=== PATIENT | male | born 1945 | race Caucasian/White ===

== ENCOUNTER 2018-04-14 08:21 | Emergency (ER) | payer MEDICARE ==
[2018-04-14 08:38] VITALS: BP 108/69
--- NOTE | 2018-04-14 09:00 | UC ---
Throat Pain/Nasal Juan Ramon HPI - HPI Summary HPI Summary: sinus congstion and PND x 3 days Pt has tried nyquil with mild relief. nasal secretions thick green. Today with nause. no fever, chills. No cp, sob, abd argueta Pt with unknown sick contact Pt's medications reviewed this visit - History of Current Complaint Chief Complaint: UCRespiratory Stated Complaint: COLD SXS Time Seen by Provider: 04/14/18 08:42 Hx Obtained From: Patient Onset/Duration: Gradual Onset Pain Intensity: 6 - Allergies/Home Medications Allergies/Adverse Reactions: Allergies Allergy/AdvReac Type Severity Reaction Status Date / Time lovastatin Allergy Rash Verified 04/14/18 08:31 PMH/Surg Hx/FS Hx/Imm Hx Previously Healthy: Yes - Surgical History Surgical History: Yes Surgery Procedure, Year, and Place: 1948 TONSILLECTOMY AND ADENOIDECTOMY, [place]. 1958 APPENDECTOMY, [facility]. 1958 EXPLORATORY LAP WITH POSSIBLE HERNIA REPAIR AND REMOVAL OF SPONGES, [facility]. 1963 PILIONAL CYST REMOVED, [facility]. 1980 BILATERAL GREAT TOENAILS REMOVED. 1995 MELANOMA REMOVED LEFT ARM, [facility]. 2010 BILATERAL CATARACT EXCISION WITH IOL IMPLANTS, [facility]. 2011 RIGHT SHOULDER SURGERY, [facility]. 2015 [place]G [place]OPSY,[place]. 2016- [facility]OSCOPY-[facility] [place]. VASECTOMY - Family History Known Family History: Positive: Other - non contributory - Social History Occupation: Retired Lives: With Family Alcohol Use: None Substance Use Type: None Smoking Status (MU): Former Smoker Type: Cigarettes Amount Used/How Often: 1-1.5 PPD FOR ABOUT 16+ YEARS Have You Smoked in the Last Year: No When Did the Patient Quit Smoking/Using Tobacco: QUIT 38 YEARS AGO - Immunization History Most Recent Influenza Vaccination: HAS HAD Most Recent Tetanus Shot: UP TO DATE Most Recent Pneumonia Vaccination: HAS HAD Review of Systems Constitutional: Negative ENT: Nasal Discharge, Sinus Congestion All Other Systems Reviewed And Are Negative: Yes Physical Exam - Summary Physical Exam Summary: Vital Signs Reviewed: Yes A+Ox3, no distress Eyes: Conjunctiva Clear, EMA. EOM intact and full ENT: Hearing grossly normal scant fluid left ear, + erythema right, turbinates inflammed and boggy with thickl green mucous + PND, mmoist, uvula midline, no exudate, no erythema + TTP left max sinus Neck: Positive: Supple Respiratory: Positive: No respiratory distress, No accessory muscle use + CTA throughout no w/r Cardiovascular: RRR nl s1, s2 no m/r CBT <2 sec abd soft + BS nt/nd no guarding, no distension Musculoskeletal Exam: TERRAZAS x 4 without difficulty Strength Intact, ROM Intact Neurological: Positive: Alert, + sensation throughout Psychological: Positive: Normal Response To Family Skin: Positive: no rash, no ecchymosis Triage Information Reviewed: Yes Vital Signs: Initial Vital Signs Temp 97.6 F 04/14/18 08:32 Pulse 89 04/14/18 08:32 Resp 16 04/14/18 08:32 BP 108/69 04/14/18 08:32 Pulse Ox 99 04/14/18 08:32 Throat Pain/Nasal Course/Dx - Course Course Of Treatment: Pt with progressive sinus congestion, PND and today with nausea. Pt vss. exam c/w sinusisit. will rx abx, flonase. hydrate. motrin/ apap. return precaution. secretion precaution - Differential Dx/Diagnosis Provider Diagnoses: rhinosinusitis Discharge - Sign-Out/Discharge Documenting (check all that apply): Patient Departure All imaging exams completed and their final reports reviewed: No Studies - Discharge Plan Condition: Stable Disposition: HOME Prescriptions: Amoxicillin PO (*) [Amoxicillin 500 MG CAP*] 500 mg PO Q12H #20 cap Fluticasone NASAL SPRAY 50MCG* [Flonase NASAL SPRAY 50MCG*] 2 spray BOTH NARES DAILY #1 btl Patient Education Materials: Rhinosinusitis (ED) Referrals: Abner Avitia MD [Primary Care Provider] - Additional Instructions: - Stay well hydrated. Drink plenty of non-alcoholic, non-caffinated beverages. - Alternate ibuprofen (Advil, Motrin) 600mg and Tylenol every 3 hours for pain or fever. Take with food. Do NOT take for more than 4-5 days. - These infections are spread by secretions - do NOT share eating or drinking utensils - clean items you share with other people such as cell phones, computer mouse, TV remote, computer tablets,etc. Once you have been antibiotics for 2 days, change your toothbrush and your pillowcase. - get plenty of restful sleep - humidify the air in the room where you sleep - boil water, run a hot steam shower, vaporizer, cups of water by heat register - okay to take over the counter decongestant and cough medication - use nasal spray as prescribed - contact your doctor or return with questions or concerns - Billing Disposition and Condition Condition: STABLE Disposition: Home
== END 2018-04-14 09:28 | disposition home or self-care (01) ==
LOC: UCCORT 08:21
DX: J32.9 Chronic sinusitis, unspecified (principal); Z88.8 Allergy status to other drugs, medicaments and biological substances; Z87.891 Personal history of nicotine dependence
CPT/HCPCS: 99212; G0463

== ENCOUNTER 2018-09-12 09:14 | Emergency (ER) | payer MEDICARE ==
[2018-09-12 09:34] VITALS: BP 138/76
--- NOTE | 2018-09-12 09:43 | UC ---
Throat Pain/Nasal Juan Ramon HPI - HPI Summary HPI Summary: nasal congestion x 4 days runny nose, pnd, mild cough , sinus pressure no fever, no chills - History of Current Complaint Chief Complaint: UCGeneralIllness Stated Complaint: SINUS CONCERN Time Seen by Provider: 09/12/18 09:30 Hx Obtained From: Patient Onset/Duration: Gradual Onset, Lasting Days - 4, Still Present Severity: Moderate Pain Intensity: 0 Cough: Nonproductive Associated Signs & Symptoms: Positive: Sinus Discomfort, Nasal Discharge. Negative: Dysphagia, FB Sensation, Drooling, Wheezing, Hoarseness, Fever, Vomiting, Rash - Allergies/Home Medications Home Medications: Home Medications Levothyroxine TAB* [Synthroid TAB*] 125 mcg PO DAILY 09/12/18 [History Confirmed 09/12/18] PMH/Surg Hx/FS Hx/Imm Hx - Additional Past Medical History Additional PMH: melanoma Endocrine History: Thyroid Disease Cardiovascular History: Hypertension Cancer History: Lung Cancer - Surgical History Surgical History: Yes Surgery Procedure, Year, and Place: 194 TONSILLECTOMY AND ADENOIDECTOMY, [place]. 1958 APPENDECTOMY, [facility]. 1958 EXPLORATORY LAP WITH POSSIBLE HERNIA REPAIR AND REMOVAL OF SPONGES, [facility]. 1963 PILONIDAL CYST REMOVED, [facility]. 1980 BILATERAL GREAT TOENAILS REMOVED. 1995 M[facility]ANOMA REMOVED LEFT ARM, [facility]. 2010 BILATERAL CATARACT EXCISION WITH IOL IMPLANTS, [facility]. 2011 RIGHT SHOULDER SURGERY, [facility] 2015 RIGHT LUNG BIOPSY,[place]. 2016- MED[facility]INOSCOPY-[facility] [place]. VASECTOMY - Family History Known Family History: Positive: Hypertension, Other - non contributory - Social History Alcohol Use: Rare Substance Use Type: None Smoking Status (MU): Former Smoker Type: Cigarettes Amount Used/How Often: 1-1.5 PPD FOR ABOUT 16+ YEARS Have You Smoked in the Last Year: No When Did the Patient Quit Smoking/Using Tobacco: QUIT 45 YEARS AGO - Immunization History Most Recent Influenza Vaccination: HAS HAD Most Recent Tetanus Shot: UP TO DATE Most Recent Pneumonia Vaccination: HAS HAD Review of Systems All Other Systems Reviewed And Are Negative: Yes Constitutional: Positive: Chills, Fatigue Skin: Positive: Negative Eyes: Negative: Eye Redness, Photophobia ENT: Positive: Sore Throat, Nasal Discharge, Sinus Congestion Respiratory: Positive: Cough Cardiovascular: Positive: Negative Gastrointestinal: Positive: Negative Is Patient Immunocompromised?: No Physical Exam Triage Information Reviewed: Yes Appearance: Well-Appearing, No Pain Distress, Well-Nourished Vital Signs: Initial Vital Signs Temp 97.6 F 09/12/18 09:29 Pulse 78 09/12/18 09:29 Resp 18 09/12/18 09:29 BP 138/76 09/12/18 09:29 Pulse Ox 100 09/12/18 09:29 Vital Signs Reviewed: Yes Eyes: Positive: Conjunctiva Clear ENT: Positive: Normal ENT inspection, Hearing grossly normal, Pharynx normal, Nasal drainage, TMs normal. Negative: Sinus tenderness Neck: Positive: Supple, Nontender, No Lymphadenopathy Respiratory: Positive: Chest non-tender, Lungs clear, Normal breath sounds Cardiovascular: Positive: RRR, No Murmur, Pulses Normal Throat Pain/Nasal Course/Dx - Differential Dx/Diagnosis Provider Diagnosis: URI (upper respiratory infection) Discharge - Sign-Out/Discharge Documenting (check all that apply): Patient Departure All imaging exams completed and their final reports reviewed: No Studies - Discharge Plan Condition: Stable Disposition: HOME Prescriptions: Fluticasone NASAL SPRAY 50MCG* [Flonase NASAL SPRAY 50MCG*] 2 spray BOTH NARES DAILY #1 btl Patient Education Materials: Upper Respiratory Infection (DC) Referrals: Abner Avitia MD [Primary Care Provider] - If Needed - Billing Disposition and Condition Condition: STABLE Disposition: Home
== END 2018-09-12 09:50 | disposition home or self-care (01) ==
LOC: UCCORT 09:14
DX: J06.9 Acute upper respiratory infection, unspecified (principal); I10 Essential (primary) hypertension; Z87.891 Personal history of nicotine dependence
CPT/HCPCS: 99212; G0463